=== PATIENT | female | born 2000 | race Two or more races ===

== ENCOUNTER 2023-04-12 19:02 | Emergency (ER) | payer OTHER ==
[~2023-04-12] VITALS: Ht 160 cm; Wt 54.6 kg
[2023-04-12] MEDS ORDERED: NAPR-56 PO (20:49)
[2023-04-12 21:02] VITALS: BP 106/73; PULSE 89; RESP 15; TEMP 98.4; O2SAT 100
== END 2023-04-12 21:03 | disposition home or self-care (01) ==
LOC: ER 19:03
DX: S50.01XA Contusion of right elbow, initial encounter (principal); W18.39XA Other fall on same level, initial encounter; Y93.89 Activity, other specified; Y92.89 Other specified places as the place of occurrence of the external cause; Y99.8 Other external cause status
CPT/HCPCS: 73080; 73090; 99284